=== PATIENT | female | born 2000 | race Caucasian/White ===

== ENCOUNTER 2022-09-05 09:42 | Inpatient (IN) | payer BC ==
[~2022-09-05] VITALS: Ht 172.7 cm; Wt 54.4 kg
--- NOTE | 2022-09-05 09:50 | NUR ---
Patient to ER bed 08 to gown for evaluation. Side rails up.
[2022-09-05 09:55] VITALS: BP_SYST 142; PULSE 85; RESP 18; TEMP 98.3; O2SAT 98
--- NOTE | 2022-09-05 09:59 | NUR ---
Phlebotomy at bedside obtaining samples for testing.
[2022-09-05 10:25] LABS: BASOPHILS # (AUTO) 0.1 K/uL (0.0-0.2); BASOPHILS % (AUTO) 0.4 % (0.0-2.0); EOSINOPHILS % (AUTO) 0.1 % (0.0-4.0); HEMATOCRIT 43.1 % (36-48); HEMOGLOBIN 14.4 g/dL (12.0-16.0); LYMPHOCYTES # (AUTO) 0.5 K/uL (1.0-5.5); LYMPHOCYTES % (AUTO) 2.8 % (20.5-51.5); MEAN CORPUSCULAR HEMOGLOBIN 30 pg (27-31); MEAN CORPUSCULAR HGB CONC 34 % (32-36); MEAN CORPUSCULAR VOLUME 91 fL (79.0-98.0); MONOCYTES # (AUTO) 0.8 K/uL (0.0-1.0); MONOCYTES % (AUTO) 4.3 % (1.7-9.3); NEUTROPHILS % (AUTO) 92.4 % (40.0-70.0); PLATELET COUNT (AUTO) 311 K/uL (130-430); RED BLOOD CELL COUNT(AUTO) 4.75 MIL/uL (4.2-6.2); RED CELL DISTRIBUTION WIDTH 12.3 % (9.0-15.0); WHITE BLOOD COUNT (AUTO) 18.4 K/uL (4.8-10.8)
[2022-09-05 10:30] LABS: ANION GAP 10 (5-15); CALCIUM 9.5 mg/dL (8.4-11.0); CHLORIDE 102 mmol/L (98-107); CREATININE 0.74 mg/dL (0.55-1.30); GFR AFRICAN AMERICAN 126 mL/min (>90); GLUCOSE 117 mg/dL (74-106); UREA NITROGEN, BLOOD 6 mg/dL (8-21)
[2022-09-05] MEDS ORDERED: HALOPERIDOL LACTATE 5 MG/ML VIAL IM ONE (10:30)
[2022-09-05] MEDS ORDERED: KETOROLAC TROMETHAMINE 60 MG/2 ML VIAL IM ONE (10:30)
--- NOTE | 2022-09-05 10:31 | NUR ---
Urine sample obtained. HCG negative. Sample taken to lab for testing.
[2022-09-05 10:35] LABS: ALANINE AMINOTRANSFERASE 25 U/L (12-78); ALBUMIN 5.3 g/dL (3.4-4.8); AMYLASE 27 U/L (0-100); ASPARTATE AMINOTRANSFERASE 19 U/L (10-37); LIPASE 40 U/L (73-393); TOTAL BILIRUBIN 1.2 mg/dL (0.0-1.0)
--- NOTE | 2022-09-05 11:03 | NUR ---
Patient given medication according to MD orders.
--- NOTE | 2022-09-05 11:05 | NUR ---
Patient to radiology
[2022-09-05 11:20] LABS: BILIRUBIN,URINE 1+ (NEGATIVE); CLARITY/URINE CLEAR (CLEAR); COLOR,URINE YELLOW (YELLOW); GLUCOSE,URINE NEGATIVE (NEGATIVE); KETONES,URINE TRACE (NEGATIVE); LEUKOCYTE ESTERASE ,URINE NEGATIVE (NEGATIVE); NITRITE, URINE NEGATIVE (NEGATIVE); PROTEIN URINE 1+ (NEGATIVE); UROBILINOGEN,URINE 0.2 (0.2-1.0)
[2022-09-05 11:21] LABS: BLOOD, URINE TRACE (NEGATIVE)
[2022-09-05 11:28] LABS: ACETONE, SERUM NEGATIVE (NEGATIVE)
[2022-09-05 11:49] LABS: BACTERIA,URINE RARE /HPF (None Seen)
[2022-09-05 12:07] LABS: CANNABINOID, URINE POSITIVE (NEG <=50)
[2022-09-05 12:08] LABS: BARBITURATE, URINE NEGATIVE (NEG <=200); BENZODIAZEPINE, URINE NEGATIVE (NEG <=150); COCAINE, URINE NEGATIVE (NEG <=150); METHAMPHETAMINES SCREEN,URINE NEGATIVE (NEG <=500); OPIATE, URINE NEGATIVE (NEG <=100); PHENCYCLIDINE SCREEN,URINE NEGATIVE (NEG <=25); UR TRICYCLIC ANTIDEPRESSANTS POSITIVE (NEG <=300); URINE AMPHETAMINE NEGATIVE (NEG <=500); URINE METHADONE NEGATIVE (NEG <=200); URINE OXYCODONE SCREEN NEGATIVE (NEG <=100); URINE PROPOXYPHENE SCREEN NEGATIVE (NEG <=300)
[2022-09-05] MEDS ORDERED: MORPHINE 4 MG INJ. 4 MG/ML VIAL IVP ONE ×2 (12:30→16:30)
[2022-09-05] MEDS ORDERED: NACL 0.9% 1,000 ML IV ONE (12:30)
[2022-09-05] MEDS ORDERED: PIPERACILLIN/TAZO 3.375 GM in NS 50 ML IV ONE (12:30)
[2022-09-05] MEDS ORDERED: DIFL5DRO EACH EYE (13:20)
[2022-09-05] MEDS ORDERED: QUET400T13 PO (13:20)
--- NOTE | 2022-09-05 13:20 | NUR ---
Admit bed requested Patient will be admitted to care of . Admitted to [facility] unit. Diagnosis APPENDICITIS Inpatient (Yes or No) YES Observation (Yes or No) NO Orientation concerns or request close to nursing station (Yes or No) NO Covid Status NA On vent or bipap NO Isolation requirements NO Needs a sitter NO From Home (Yes or if No enter name of facility) HOME Requires Dialysis (Yes or No) NO Med Rec Completed (Yes of No) YES
[2022-09-05] MEDS ORDERED: PIPERACILLIN/TAZOBACTAM 3.375 GM/VIAL (ZOSYN) IV ONE (13:31)
[2022-09-05] MEDS ORDERED: ARGATROBAN 250 MG in NS 247.5 ML IV SCH (14:00)
--- NOTE | 2022-09-05 14:52 | NUR ---
PT RESTING IN BED WITH EYES CLOSED AND FAMILY AT BEDSIDE. NO S/S OF DISTRESS; NO C/O PAIN; STABLE VITALS. PT PENDING DR. KAY SURGERY CONSULT.
[2022-09-05] MEDS ORDERED: NALOXONE HCL 0.4 MG/ML AMP (NARCAN) IVP PRN ×2 (16:30→17:00)
[2022-09-05] MEDS ORDERED: HYDROmorphone 1 MG/ML INJ. CARTRIDGE IVP PRN (17:00)
[2022-09-05] MEDS ORDERED: ONDANSETRON HCL 4 MG/2 ML VIAL IVP PRN (17:00)
[2022-09-05] MEDS ORDERED: METOCLOPRAMIDE HCL 10 MG/2 ML VIAL IVP PRN (17:00)
[2022-09-05] MEDS ORDERED: fentaNYL CITRATE/PF 100 MCG/2 ML AMP IVP PRN ×2 (17:00)
[2022-09-05] MEDS ORDERED: PROPOFOL 200MG/ 20ML VIAL (DIPRIVAN) IV ONE (17:35)
[2022-09-05] MEDS ORDERED: fentaNYL CITRATE/PF 100 MCG/2 ML AMP ONE (17:35)
[2022-09-05] MEDS ORDERED: NS 1000 ML IV.SOLN IV ONE (17:35)
[2022-09-05] MEDS ORDERED: ONDANSETRON HCL 4 MG/2 ML VIAL ONE (17:35)
[2022-09-05] MEDS ORDERED: SEVOFLURANE 15 MIN GAS INH ONE (17:35)
[2022-09-05] MEDS ORDERED: ROCURONIUM BROMIDE 10 MG/ML (ZEMURON) ONE (17:35)
[2022-09-05] MEDS ORDERED: NS IRRIG SOLN 1000 ML IR ONE (17:35)
[2022-09-05] MEDS ORDERED: BUPIVACAINE /PF 0.25% 30 ML VIAL INJ ONE (17:35)
[2022-09-05] MEDS ORDERED: MIDAZOLAM HCL 2 MG/2 ML VIAL (VERSED) ONE (17:35)
[2022-09-05] MEDS ORDERED: ACETAMINOPHEN I.V. 1000 MG 100 ML IV ONE ×2 (18:57→19:45)
[2022-09-05 20:10] VITALS: BP_SYST 125; PULSE 89; RESP 16; TEMP 98.1; O2SAT 96
[2022-09-05] MEDS: MORPHINE 4 MG INJ. 4 MG/ML VIAL IVP PRN (20:41)
[2022-09-05] MEDS: D5/0.45 NS 1,000 ML IV SCH (21:02)
[2022-09-05 21:03] VITALS: BP_SYST 125; PULSE 89; RESP 16; TEMP 98.1
[2022-09-05] MEDS: QUEtiapine FUMARATE 100 MG TABLET PO SCH (22:14)
[2022-09-06] VITALS: BP_SYST 117; PULSE 118; RESP 17; TEMP 98.8; O2SAT 97
[2022-09-06] MEDS: PIPERACILLIN/TAZO 3.375/DEX-IS 50 ML IV SCH ×5 (00:21→23:07)
[2022-09-06 01:56] VITALS: O2SAT 97
[2022-09-06] MEDS: MORPHINE 2 MG/ML INJ. SYRINGE IVP PRN (03:41)
[2022-09-06 05:48] LABS: BASOPHILS % (AUTO) 0.1 % (0.0-2.0); HEMATOCRIT 39.9 % (36-48); HEMOGLOBIN 13.4 g/dL (12.0-16.0); LYMPHOCYTES # (AUTO) 0.3 K/uL (1.0-5.5); LYMPHOCYTES % (AUTO) 3.4 % (20.5-51.5); MEAN CORPUSCULAR HEMOGLOBIN 31 pg (27-31); MEAN CORPUSCULAR HGB CONC 34 % (32-36); MEAN CORPUSCULAR VOLUME 91 fL (79.0-98.0); MONOCYTES # (AUTO) 0.3 K/uL (0.0-1.0); MONOCYTES % (AUTO) 3.5 % (1.7-9.3); PLATELET COUNT (AUTO) 255 K/uL (130-430); RED BLOOD CELL COUNT(AUTO) 4.39 MIL/uL (4.2-6.2); RED CELL DISTRIBUTION WIDTH 12.1 % (9.0-15.0); WHITE BLOOD COUNT (AUTO) 9.7 K/uL (4.8-10.8)
[2022-09-06 06:10] LABS: ALBUMIN 3.6 g/dL (3.4-4.8); CALCIUM 8.2 mg/dL (8.4-11.0); CREATININE 0.71 mg/dL (0.55-1.30); TOTAL BILIRUBIN 2.3 mg/dL (0.0-1.0)
[2022-09-06] MEDS: D5/0.45 NS 1,000 ML IV SCH ×2 (06:25→17:13)
--- NOTE | 2022-09-06 07:30 | NUR ---
Initial note: report received from Kathrin. patient is awake alert x4. Call light in reach. bed in the lowest position and side rails x2 up. Complained 7/10 pain on Abdominal. Will continue patient care.
[2022-09-06 08:00] VITALS: BP_SYST 111; PULSE 120; RESP 18; TEMP 97.7; O2SAT 97
[2022-09-06] MEDS: MORPHINE 4 MG INJ. 4 MG/ML VIAL IVP PRN ×3 (08:10→17:01)
[2022-09-06 12:00] VITALS: BP_SYST 105; PULSE 113; RESP 18; TEMP 97.6; O2SAT 98
--- NOTE | 2022-09-06 12:57 | NUR ---
Note: patient is resting on bed. Family is at the bedside. No pain or discomfort at this time.
--- NOTE | 2022-09-06 13:21 | NUR ---
Dietitian Recommendations * Consider advance to GI Soft diet w/ Ensure TID, Dilip BID if/when medically appropriate LP, MS, RD Please refer to Nutrition Assessment for details. Addendum: 09/06/22 at [address] Amended: Links added.
[2022-09-06 16:00] VITALS: BP_SYST 112; PULSE 115; RESP 18; TEMP 97.8; TEMP 99.4; O2SAT 97
--- NOTE | 2022-09-06 16:00 | NUR ---
Note: Patient is resting in bed. Family is at the bedside. Complained 7/10 abdominal pain and will provide pain medication and continue to monitor.
[2022-09-06] MEDS ORDERED: ACETAMINOPHEN 325 MG TABLET PO PRN (18:30)
[2022-09-06] MEDS ORDERED: NALOXONE HCL 0.4 MG/ML AMP (NARCAN) IVP PRN ×2 (18:30)
--- NOTE | 2022-09-06 19:32 | NUR ---
Closing note: Reported to Ramandeep. Patient is resting in bed. Family is at the bedside. No complain of pain or discomfort at this time. Endorse to continue patient care.
[2022-09-06] MEDS ORDERED: POTASSIUM CHLORIDE 20 MEQ TAB.PRT.SR PO ONE (19:45)
[2022-09-06] MEDS: QUEtiapine FUMARATE 100 MG TABLET PO SCH (20:32)
[2022-09-06 20:35] VITALS: BP_SYST 132; PULSE 129; RESP 20; TEMP 100.8; O2SAT 98
--- NOTE | 2022-09-06 20:35 | NUR ---
PM ASSESSMENT; - Patient is awake, alert, oriented X4. Pt denies any chest pain,pain,sob,or any acute distress. Surgical abdominal site with INA Maciel. Pt stated that she passed flatus. Encouraged pt to walk more, she verbalized that she did already with her mom around hallway before manager shift begins. Discussed poc,pain mgmt, safety measures with pt, she verbalized understanding. Patient oriented to hospital room, call light, toileting, pain management and safety-teach back done. Patient informed that I (Ramandeep) will be her nurse and that her room number is 122-A. Fall precaution in place, side rails x2 and call light within reach.Cont to monitor pt.
[2022-09-06] MEDS: HYDROcodone/ACETAMIN 10-325 MG TAB PO PRN (20:40)
--- NOTE | 2022-09-06 20:40 | NUR ---
NOTES; PAIN MGMT; -Pt is c/o abd pain, gave Morrison po upon pt's request. Fall precaution in place. Call light w/in reach. Cont to monitor pt.
[2022-09-07 00:16] VITALS: BP_SYST 126; PULSE 96; RESP 16; TEMP 98.8; O2SAT 98
--- NOTE | 2022-09-07 00:16 | NUR ---
ROUNDS; -Pt is asleep. NO s/s any pain,sob,or any acute distress noted. IVF infusing well. VS stable. All safety measures in place. Call light w/in reach. Cont to monitor pt.
--- NOTE | 2022-09-07 02:08 | NUR ---
ROUNDS; -Pt is asleep. NO s/s any pain,sob,or any acute distress noted. All safety measures in place. Call light w/in reach. Cont to monitor pt.
--- NOTE | 2022-09-07 04:22 | NUR ---
ROUNDS; -Pt is still asleep. NO s/s any pain,sob,or any acute distress noted. All safety measures in place. Call light w/in reach. Cont to monitor pt.
[2022-09-07] MEDS: PIPERACILLIN/TAZO 3.375/DEX-IS 50 ML IV SCH ×3 (05:05→17:42)
[2022-09-07 05:06] VITALS: PULSE 94; RESP 20; TEMP 99
[2022-09-07] MEDS: ACETAMINOPHEN 325 MG TABLET PO PRN ×3 (05:06→19:52)
[2022-09-07] MEDS: D5/0.45 NS 1,000 ML IV SCH ×2 (05:08→13:25)
--- NOTE | 2022-09-07 05:09 | NUR ---
NOTES;PAIN MGMT; -Pt is c/o abd pain 3/10 aching after assisting to bathroom and returned to bed safely. All safety measures in place. Call light w/in reach. Cont to monitor pt.
[2022-09-07 05:39] LABS: BASOPHILS % (AUTO) 0.1 % (0.0-2.0); HEMATOCRIT 34.2 % (36-48); HEMOGLOBIN 11.8 g/dL (12.0-16.0); LYMPHOCYTES # (AUTO) 0.4 K/uL (1.0-5.5); MEAN CORPUSCULAR HEMOGLOBIN 31 pg (27-31); MEAN CORPUSCULAR HGB CONC 35 % (32-36); MEAN CORPUSCULAR VOLUME 90 fL (79.0-98.0); MONOCYTES # (AUTO) 0.5 K/uL (0.0-1.0); MONOCYTES % (AUTO) 2.6 % (1.7-9.3); NEUTROPHILS # (AUTO) 17.1 K/uL (1.8-7.7); NEUTROPHILS % (AUTO) 95.3 % (40.0-70.0); PLATELET COUNT (AUTO) 229 K/uL (130-430); RED BLOOD CELL COUNT(AUTO) 3.79 MIL/uL (4.2-6.2); WHITE BLOOD COUNT (AUTO) 17.9 K/uL (4.8-10.8)
[2022-09-07 05:55] LABS: CALCIUM 7.9 mg/dL (8.4-11.0); CREATININE 0.71 mg/dL (0.55-1.30); TOTAL BILIRUBIN 1.3 mg/dL (0.0-1.0)
--- NOTE | 2022-09-07 06:42 | NUR ---
CLOSING NOTES; PT AMBULATED FROM HER ROOM TO HALLWAY APPROX 30 FT, PT TOLERATED WELL. -Pt awakes, denies any chest pain,pain,sob,or any acute distress. Just ambulated from her room near hallway of room 129 and returned to bed safely. Call light w/in reach. IV site patent no s/s any infiltration noted. IVF infusing well. Will endorse to next nurse to continuity of care.
--- NOTE | 2022-09-07 07:30 | NUR ---
Initial note: Report received from Ramandeep. Patient is resting in bed. No pain or discomfort at this time. Bed in the lowest position and side rails x2 up. Call light in reach. Will continue patient care.
[2022-09-07 08:00] VITALS: BP_SYST 97; PULSE 120; RESP 18; TEMP 98.7; O2SAT 96
[2022-09-07 11:22] VITALS: BP_SYST 125; PULSE 130; RESP 19; TEMP 98.6; O2SAT 98
--- NOTE | 2022-09-07 12:11 | NUR ---
Note: paged Dr. Franck Waters for heart rate at 120 and 130 and potassium is 3.3 today. Waiting for call back.
--- NOTE | 2022-09-07 12:39 | NUR ---
Note: patient tolerated clear liquid diet well and ungraded the diet to soft diet as doctor ordered. No pain or discomfort at this time. Family is at the bedside. Will continue to monitor.
--- NOTE | 2022-09-07 12:43 | NUR ---
Note: patient stated she passed the gas earlier today.
--- NOTE | 2022-09-07 12:44 | NUR ---
Note: paged Dr. Franck Waters again for the high heart rate and potassium 3.3. Waiting for call back. Patient has no pain or discomfort at this time.
--- NOTE | 2022-09-07 13:05 | NUR ---
Note: Dr. Franck Waters called back and reported heart rate 130 and potassium 3.3 and WBC 17.9. New order received for KDUR 40mEq x1 and patient is already on Zosyn and Dr. Waters stated to continue monitor the heart rate and lab result. No new order for high heart rate and WBC for now. Will continue to monitor.
[2022-09-07] MEDS ORDERED: POTASSIUM CHLORIDE 20 MEQ TAB.PRT.SR PO ONE (13:15)
[2022-09-07 16:00] VITALS: BP_SYST 117; PULSE 122; RESP 18; TEMP 98.6; O2SAT 97
--- NOTE | 2022-09-07 16:00 | NUR ---
Note: patient is resting in bed. Family is at the bedside. No pain or discomfort at this time. Will continue to monitor.
--- NOTE | 2022-09-07 19:58 | NUR ---
Closing note: reported to Tatum. Provided Tylenol to patient for mild abdominal pain. Patient is awake alert x4. Family is at the bedside. Endorse to continue patient care.
[2022-09-07 20:00] VITALS: BP_SYST 119; PULSE 119; RESP 18; TEMP 98; O2SAT 98
--- NOTE | 2022-09-07 20:00 | NUR ---
ASSESSMENT COMPLETED PLAN OF CARE REVIEWED PT ENDORSES SHE IS IN PAIN AND TYLENOL NOT EFFECTIVE AT THIS TIME PT MADE AWARE PAIN WILL BE REASSESSED IN 1 HOUR AND IF NO RELEIF NORCO WILL BE GIVEN PT ENDORSES PAIN IS TOLERABLE AT THIS TIME MOTHER AT BEDSIDE IV PATENT ASSISTED TO BRP VOIDED NO DISTRESS NOTED WILL CONTINUE TO MONITOR AND ASSESS HR [address] PT DENIES CHEST PAIN SYNCOPE OR DIZZINESS AT THIS TIME
[2022-09-07] MEDS: QUEtiapine FUMARATE 100 MG TABLET PO SCH (21:14)
[2022-09-07] MEDS: HYDROcodone/ACETAMIN 10-325 MG TAB PO PRN (21:15)
[2022-09-08] VITALS: BP_SYST 121; PULSE 98; RESP 18; TEMP 98.2; O2SAT 97
[2022-09-08] MEDS: D5/0.45 NS 1,000 ML IV SCH ×2 (00:08→10:17)
[2022-09-08] MEDS: PIPERACILLIN/TAZO 3.375/DEX-IS 50 ML IV SCH ×4 (00:08→18:48)
--- NOTE | 2022-09-08 00:30 | NUR ---
NO CHANGES AT THIS TIME VSS NO DISTRESS TURNS AND REPOSITIONS SELF WILL CONTINUE TO MONITOR AND ASSESS
[2022-09-08 04:00] VITALS: BP_SYST 104; PULSE 125; RESP 18; TEMP 99.4; O2SAT 96
[2022-09-08] MEDS: HYDROcodone/ACETAMIN 10-325 MG TAB PO PRN ×4 (04:48→18:56)
--- NOTE | 2022-09-08 06:18 | NUR ---
VALERIA LEGS DRESSING WRAPPED AND REINFORCED WITH KERLIX NO SIGNIFICANT CHANGES NOTED THROUGHOUT NOC ALL NEEDS ANTICIPATED AND MET Addendum: 09/08/22 at 0623 by Garrett Resendiz RN RN WRONG NOTE WRONG CHART
--- NOTE | 2022-09-08 06:23 | NUR ---
NO ACUTE DITRESS NOTED BAND AID SITES DRY AND INTACT PAIN MEDICATION EFFECTIVE ALL NEEDS ANTICIPATED AND MET
[2022-09-08 06:24] LABS: EOSINOPHILS # (AUTO) 0.1 K/uL (0.0-0.4); EOSINOPHILS % (AUTO) 0.4 % (0.0-4.0); HEMATOCRIT 32.8 % (36-48); HEMOGLOBIN 11.2 g/dL (12.0-16.0); LYMPHOCYTES # (AUTO) 0.5 K/uL (1.0-5.5); MEAN CORPUSCULAR HEMOGLOBIN 31 pg (27-31); MEAN CORPUSCULAR HGB CONC 34 % (32-36); MEAN CORPUSCULAR VOLUME 90 fL (79.0-98.0); MONOCYTES # (AUTO) 0.6 K/uL (0.0-1.0); MONOCYTES % (AUTO) 3.4 % (1.7-9.3); NEUTROPHILS # (AUTO) 16.5 K/uL (1.8-7.7); NEUTROPHILS % (AUTO) 93.2 % (40.0-70.0); PLATELET COUNT (AUTO) 249 K/uL (130-430); RED BLOOD CELL COUNT(AUTO) 3.65 MIL/uL (4.2-6.2); RED CELL DISTRIBUTION WIDTH 12.4 % (9.0-15.0); WHITE BLOOD COUNT (AUTO) 17.7 K/uL (4.8-10.8)
[2022-09-08 06:40] LABS: CALCIUM 8.2 mg/dL (8.4-11.0); CREATININE 0.61 mg/dL (0.55-1.30)
[2022-09-08 08:00] VITALS: BP_SYST 105; PULSE 115; RESP 18; TEMP 97.8; O2SAT 97
[2022-09-08 10:13] LABS: ERYTHROCYTE SEDIMENTATION RATE 78 MM/HR (0-20)
[2022-09-08] MEDS ORDERED: KCL 40 mEq in 100 mL (PREMIX) 100 ML IV ONE (11:15)
[2022-09-08] MEDS ORDERED: DIATR MEGLU/DIATRIZ SOD 30 ML SOLUTION PO ONE (11:34)
[2022-09-08] MEDS: POTASSIUM CHLORIDE 20 mEq in 100 mL (PREMIX) 100 ML x 2 doses IV SCH ×2 (11:38→15:34)
[2022-09-08 11:49] VITALS: BP_SYST 113; PULSE 110; RESP 16; TEMP 99.3; O2SAT 97
--- NOTE | 2022-09-08 12:26 | NUR ---
CONSULTATION PAGED/CALLED Reason for Consultation: leukocytosis Person Who was Notified: Dr. Chiu on unit and aware Consulting Physician: Dr. Chiu Unit Leader Specialty: ID Ordering Physician: Dr. Waters
[2022-09-08] MEDS: D5NS 1,000 ML IV SCH ×2 (13:15→18:57)
--- NOTE | 2022-09-08 16:45 | NUR ---
PATIENT SLEEPING AT THIS TIME. FAMILY REQUESTED FOR EKG TO BE DONE AT A LATER TIME. WILL TRY AGAIN LATER PER FAMILY REQUEST.
[2022-09-08 18:14] VITALS: BP_SYST 110; PULSE 105; RESP 17; TEMP 99; O2SAT 95
--- NOTE | 2022-09-08 19:17 | NUR ---
PT A&O. C/O PAIN IN ABDOMEN - PRN NORCO GIVEN NEEDED. PT CLAMMY UPON WAKING UP - NO TEMP ABOVE 99. NO C/O CHILLS OR SOB. CT OF ABDOMEN/PELVIS COMPLETED, CARDIO CLEARED. 40 OF K IV REPLACEMENT GIVEN. IVF CHANGED FROM D5 1/2NS TO D5NS FOR DROP IN SODIUM. DIET ADVANCED REQUESTED BY PATIENT BUT VERY POOR PO INTAKE - LESS THAN 10%. ABLE TO AMBULATE TO BATHROOM. PASSING GAS BUT NO BM AND VOIDING OK. STOMACH DISTENDED. FALL PRECAUTIONS IN PLACE AND CALL FRAGA IN REACH. ACTIVE PARENTS AT BEDSIDE.
[2022-09-08 20:00] VITALS: BP_SYST 115; PULSE 110; RESP 20; TEMP 96.9; O2SAT 96
--- NOTE | 2022-09-08 20:00 | NUR ---
OPENING NOTES PATIENT IS SITTING IN BED WITH FAMILY AT BEDSIDE. AXO 4 WITH MILD DISCOMFORT. PATIENT VOMITED 2X. RN ADMINISTERED ZOFRAN FOR N/V. BREATHING IS EQUAL AND UNLABORED ON RA. INCISIONS ARE INTACT. SAFETY CHECKS ARE DONE, CALL LIGHT WITH IN REACH, WILL CONTINUE TO MONITOR.
[2022-09-08] MEDS: QUEtiapine FUMARATE 100 MG TABLET PO SCH (21:25)
[2022-09-08] MEDS: ONDANSETRON HCL 4 MG/2 ML VIAL IVP PRN (22:01)
[2022-09-09] VITALS (7 sets, daily range): BP systolic 116–130; PULSE 94–111; RESP 16–18; TEMP 98–99.2; O2SAT 95–97
[2022-09-09] MEDS: PIPERACILLIN/TAZO 3.375/DEX-IS 50 ML IV SCH ×5 (00:54→23:22)
[2022-09-09] MEDS: MORPHINE 2 MG/ML INJ. SYRINGE IVP PRN ×4 (03:57→20:11)
--- NOTE | 2022-09-09 03:57 | NUR ---
PAIN MEDS PATIENT IS HAVING 8/ 10 ABDOMINAL PAIN. HAVE RN ADMINISTERED MORPHINE IV FOR PAIN. WILL CONTINUE TO MONITOR,
[2022-09-09] MEDS: D5NS 1,000 ML IV SCH ×2 (06:07→20:15)
[2022-09-09] MEDS: LORazepam 2 MG/ML VIAL IVP PRN ×2 (06:14→17:12)
[2022-09-09 06:31] LABS: BASOPHILS % (AUTO) 0.3 % (0.0-2.0); EOSINOPHILS # (AUTO) 0.1 K/uL (0.0-0.4); EOSINOPHILS % (AUTO) 0.7 % (0.0-4.0); HEMATOCRIT 34.2 % (36-48); HEMOGLOBIN 11.3 g/dL (12.0-16.0); LYMPHOCYTES # (AUTO) 0.9 K/uL (1.0-5.5); LYMPHOCYTES % (AUTO) 7.7 % (20.5-51.5); MEAN CORPUSCULAR HEMOGLOBIN 30 pg (27-31); MEAN CORPUSCULAR HGB CONC 33 % (32-36); MEAN CORPUSCULAR VOLUME 91 fL (79.0-98.0); MONOCYTES # (AUTO) 0.8 K/uL (0.0-1.0); MONOCYTES % (AUTO) 6.2 % (1.7-9.3); NEUTROPHILS # (AUTO) 10.5 K/uL (1.8-7.7); NEUTROPHILS % (AUTO) 85.1 % (40.0-70.0); PLATELET COUNT (AUTO) 344 K/uL (130-430); RED BLOOD CELL COUNT(AUTO) 3.75 MIL/uL (4.2-6.2); RED CELL DISTRIBUTION WIDTH 12.5 % (9.0-15.0); WHITE BLOOD COUNT (AUTO) 12.4 K/uL (4.8-10.8)
--- NOTE | 2022-09-09 06:37 | NUR ---
CLOSING NOTES PATIENT IS LYING IN BED AXO 4 WITH NO S/S OF DISTRESS OR DISCOMFORT. PATIENT STATED SHE HAS NEED BEEN ABLE TO SLEEP WELL AND RN ADMINISTERED 1 MG OF ATIVAN. PATIENT STATES SHE DOES NOT HAVE PAIN OR NAUSEA AT THE MOMENT. IVF ARE RUNNING. BREATHING IS EQUAL AND UNLABORED ON RA. ALL NEEDS WERE MET AT THIS TIME. SAFETY CHECKS DONE AND CALL LIGHT WITH IN REACH,
[2022-09-09 07:01] LABS: CALCIUM 8.1 mg/dL (8.4-11.0); CREATININE 0.59 mg/dL (0.55-1.30)
[2022-09-09 07:44] LABS: ERYTHROCYTE SEDIMENTATION RATE 91 MM/HR (0-20)
[2022-09-09] MEDS: HYDROcodone/ACETAMIN 10-325 MG TAB PO PRN (11:02)
[2022-09-09] MEDS: ONDANSETRON HCL 4 MG/2 ML VIAL IVP PRN ×2 (11:02→17:12)
--- NOTE | 2022-09-09 11:48 | NUR ---
Nutrition F/U RD reviewed pts current EMR including diet hx, physician notes, nursing notes, pertinent labs/meds/procedures, care trends and care activity. Admitting Diagnosis Appendicitis 09/05: Pt had a lap appy Per Chiu Consult 09/08: CT abdomen pelvis [09/08/2022]: 1. Dilated loops of small bowel measuring up to 3.6 cm in diameter. Enteric contrast is within the proximal and mid small bowel but does not extend to the distal small bowel or colon. Findings are suspicious for underlying ileus or evolving small bowel obstruction. Clinical correlation advised. 2. Calcification at the right lower quadrant adjacent to the cecum measuring up to 7 mm could represent a residual stone within an appendical stump remnant or a dropped appendicolith. CT with contrast would aid in delineation of these 2 entities. There is adjacent suture material and edema present. Subjective Information RD rounded to pt room and pt was crying from stomach pain. RD asked her and her mother if she had told RN about this pain and they just had. RN came in to administer pain meds during RD visit. RD asked if pt was tolerating diet and she said she was somewhat. RD encouraged pt to try and walk and move around to help encourage gas pain to dissipate; pt said she is trying but the pain is making it hard. Per EMR review: abd distended w/ active bowel sounds; pt on room air; LABS: WBC 12.4 H (improving), K+ 3.2 L, BUN 4 L. Pt is likely not meeting nutritional needs yet. Current Diet Order/Nutrition Support Clear liquid x 0 days % PO intake Poor avg of 39% x 7 meal records Last BM *none documented Estimated Energy Expenditure (kcals/day) 9426-2052 (30-35 kcal/kg IBW for wt gain promotion, Sx healing) Estimated Protein Required (g/day) 64-77 (1-1.2 gm/kg IBW for wt gain promotion, Sx healing) Estimated Fluid Required (l/day) 1.9-2.2 (1 ml/kcal/day for adult maintenance) Problem/Etiology/Signs/Symptoms Increased nutritional needs R/T metabolic demands AEB estimated nutritional requirements for wt gain and Sx healing. *ongoing Expected Outcomes/Goals - Monitor appetite, PO intakes, and advancement of diet w/ goal of pt meeting at least 50% of estimated nutritional needs, labs trending WNL, normal GI function, and skin integrity/wt maintenance Dietitian Recommendations * Consider advance to GI Soft diet w/ Ensure TID, Dilip BID if/when medically appropriate Follow up *Moderate risk: f/u in 3-5 days MUNA, MPH, RD
--- NOTE | 2022-09-09 11:49 | NUR ---
Dietitian Recommendations * Consider advance to GI Soft diet w/ Ensure TID, Dilip BID if/when medically appropriate GS, MPH, RD Please refer to Nutrition F/U for further details. Thanks!
[2022-09-09] MEDS ORDERED: KCL 40 mEq in 100 mL (PREMIX) 100 ML IV ONE (13:45)
[2022-09-09] MEDS: POTASSIUM CHLORIDE 20 mEq in 100 mL (PREMIX) 100 ML x 2 doses IV SCH ×2 (14:26→17:17)
--- NOTE | 2022-09-09 18:27 | NUR ---
pt a&o, c/o pain in abdomen - no c/o n/v. pt able to ambulate w/ pain. ivf infusing as ordered. able to tolerate small amount of clear liquid diet. able to pass gas, abdomen distended. prn zofran, morphine, norco and ativan given as needed. pt family @ bedside. iv k replacement infusing as ordered. vss. fall precautions in place. will continue to monitor.
[2022-09-09] MEDS: QUEtiapine FUMARATE 100 MG TABLET PO SCH (18:42)
--- NOTE | 2022-09-09 18:47 | NUR ---
PT C/O INCREASING ANXIETY - GIVEN HS SEROQUEL DOSE AN HOUR EARLY PER PT REQUEST. PRN ATIVAN ALREADY GIVEN PREVIOUSLY AND UNSUCCESSFUL AT ALLEVIATING SYMPTOM.
[2022-09-10] VITALS: BP_SYST 125; PULSE 95; RESP 18; TEMP 98.2; O2SAT 96
[2022-09-10] MEDS: MORPHINE 2 MG/ML INJ. SYRINGE IVP PRN ×2 (01:11→08:46)
[2022-09-10] MEDS: HYDROcodone/ACETAMIN 10-325 MG TAB PO PRN ×2 (03:58→11:26)
[2022-09-10 04:40] LABS: ERYTHROCYTE SEDIMENTATION RATE 93 MM/HR (0-20)
[2022-09-10 04:45] LABS: BASOPHILS % (AUTO) 0.1 % (0.0-2.0); EOSINOPHILS # (AUTO) 0.1 K/uL (0.0-0.4); EOSINOPHILS % (AUTO) 0.9 % (0.0-4.0); HEMATOCRIT 32.2 % (36-48); HEMOGLOBIN 11.1 g/dL (12.0-16.0); LYMPHOCYTES # (AUTO) 0.9 K/uL (1.0-5.5); MEAN CORPUSCULAR HEMOGLOBIN 31 pg (27-31); MEAN CORPUSCULAR HGB CONC 34 % (32-36); MEAN CORPUSCULAR VOLUME 90 fL (79.0-98.0); MONOCYTES % (AUTO) 10.4 % (1.7-9.3); NEUTROPHILS # (AUTO) 7.3 K/uL (1.8-7.7); NEUTROPHILS % (AUTO) 78.6 % (40.0-70.0); PLATELET COUNT (AUTO) 361 K/uL (130-430); RED BLOOD CELL COUNT(AUTO) 3.59 MIL/uL (4.2-6.2); RED CELL DISTRIBUTION WIDTH 12.6 % (9.0-15.0); WHITE BLOOD COUNT (AUTO) 9.3 K/uL (4.8-10.8)
[2022-09-10 05:12] LABS: ALBUMIN 2.5 g/dL (3.4-4.8); CALCIUM 7.7 mg/dL (8.4-11.0); CREATININE 0.56 mg/dL (0.55-1.30); TOTAL BILIRUBIN 0.8 mg/dL (0.0-1.0)
[2022-09-10] MEDS: PIPERACILLIN/TAZO 3.375/DEX-IS 50 ML IV SCH ×3 (05:33→17:17)
[2022-09-10] MEDS: D5NS 1,000 ML IV SCH ×2 (05:37→14:33)
[2022-09-10 08:00] VITALS: O2SAT 96
[2022-09-10 08:16] VITALS: BP_SYST 126; PULSE 98; RESP 18; TEMP 97.9; O2SAT 96
--- NOTE | 2022-09-10 10:00 | NUR ---
PT WALKING IN THE HALLWAY WITH HER MOTHER. PT WAS GIVEN PAIN MEDICATIONS FOR LOWER BACK PAIN EARLIER, AFTER PT AMBULATED TO THE BATHROOM. PT WAS GIVEN SMOOTHIE BY PT MOTHER AND REFUSED TO EAT THE CLEAR LIQUID DIET.
--- NOTE | 2022-09-10 10:31 | NUR ---
DR CHAVEZ HERE AND MADE AWARE OF PT C/O OF PAIN BUT IT SEEMS IT IS NOT WORKING. MOTHER OF PT DOES NOT WANT ME TO GIVE NORCO BECAUSE IT WILL CAUSE MORE BOWEL OBSTRUCTION. TOLD THAT SHE ALSO COMPLAIN OF GAS PAIN.
[2022-09-10] MEDS ORDERED: SIMETHICONE 80 MG TAB.CHEW PO ONE ×2 (11:00→16:15)
--- NOTE | 2022-09-10 11:05 | NUR ---
pt given mylicon for gas pain.
--- NOTE | 2022-09-10 11:14 | NUR ---
pt ambulated in the hallway 2x with her mother.
--- NOTE | 2022-09-10 11:30 | NUR ---
PT GIVEN NORCO FOR R. FLANK PAIN. PT CRYING, MOTHER AT BEDSIDE. PROVIDED ALSO WITH ICE PACKS.
[2022-09-10] MEDS ORDERED: POTASSIUM CHLORIDE 40 MEQ in NS 250 ML IV ONE (13:00)
[2022-09-10] MEDS ORDERED: BISACODYL 10 MG/SUPPOSITORY RC PRN (13:15)
[2022-09-10] MEDS ORDERED: SENNOSIDES/DOCUSATE SODIUM 1 TAB TABLET(SENOKOT-S) PO PRN (13:15)
[2022-09-10] MEDS: SIMETHICONE 80 MG TAB.CHEW PO SCH ×2 (15:51→21:57)
[2022-09-10 16:42] VITALS: BP_SYST 130; PULSE 90; RESP 19; TEMP 97.6; O2SAT 98
[2022-09-10] MEDS: HYDROcodone/ACETAMIN 5-325 MG TAB (NORCO/ VICODIN) PO PRN ×2 (17:10→21:55)
[2022-09-10] MEDS: ONDANSETRON HCL 4 MG/2 ML VIAL IVP PRN (18:59)
--- NOTE | 2022-09-10 19:04 | NUR ---
PT GIVEN ZOFRAN FOR NAUSEA.
[2022-09-10 20:00] VITALS: BP_SYST 122; PULSE 91; RESP 19; TEMP 97.3; O2SAT 96; O2SAT 97
[2022-09-10] MEDS: QUEtiapine FUMARATE 100 MG TABLET PO SCH (21:54)
[2022-09-11 00:16] VITALS: BP_SYST 114; PULSE 76; RESP 20; TEMP 98.4; O2SAT 95
[2022-09-11] MEDS: PIPERACILLIN/TAZO 3.375/DEX-IS 50 ML IV SCH ×3 (01:04→12:25)
[2022-09-11] MEDS: ONDANSETRON HCL 4 MG/2 ML VIAL IVP PRN (01:05)
[2022-09-11] MEDS: D5NS 1,000 ML IV SCH ×2 (01:06→11:55)
[2022-09-11] MEDS: HYDROcodone/ACETAMIN 5-325 MG TAB (NORCO/ VICODIN) PO PRN (05:46)
[2022-09-11 07:30] VITALS: O2SAT 98
--- NOTE | 2022-09-11 07:30 | NUR ---
INITIAL NOTES PATIENT IS RESTING IN BED WITH FAMILY AT BEDSIDE. AXO 4 WITH MILD DISCOMFORT. PATIENT VOMITED 2X. BREATHING IS NORMAL AND UNLABORED ON RA. INCISIONS ARE INTACT. SAFETY CHECKS ARE DONE, CALL LIGHT WITH IN REACH, WILL CONTINUE TO MONITOR.
[2022-09-11] MEDS: SIMETHICONE 80 MG TAB.CHEW PO SCH (08:37)
[2022-09-11 08:40] VITALS: BP_SYST 120; PULSE 99; RESP 16; TEMP 98.6; O2SAT 98
[2022-09-11] MEDS ORDERED: POTASSIUM CHLORIDE 20 MEQ TAB.PRT.SR PO ONE (11:30)
--- NOTE | 2022-09-11 11:30 | NUR ---
ROUNDS PATIENT IS RESTING IN BED WITH FAMILY AT BEDSIDE. TOOK WALK IN THE HALWAY TOLERATED WELL AXO 4 WITH MILD DISCOMFORT. PATIENT VOMITED 2X. BREATHING IS NORMAL AND UNLABORED ON RA. INCISIONS ARE INTACT. SAFETY CHECKS ARE DONE, CALL LIGHT WITH IN REACH, WILL CONTINUE TO MONITOR.
[2022-09-11] MEDS ORDERED: AUG875 PO (13:49)
[2022-09-11] MEDS ORDERED: HYDR-3917 PO (13:52)
[2022-09-11] MEDS ORDERED: SIME125C81 PO (13:52)
[2022-09-11 14:31] VITALS: BP_SYST 131; PULSE 89; RESP 16; TEMP 98.1; O2SAT 98
--- NOTE | 2022-09-11 15:05 | NUR ---
D/C Patient Patient given medication reconciliation form and D/C instructions. Exit Care provided. Patient verbalized understanding. MD discussed with patient the results and treatment provided. Ambulatory with steady gait for discharge to home. Patient in stable condition, ID band removed. IV catheter removed, intact and dressing applied, no active bleeding. Rx SENT TO THE PHARMACY ELECTRONICALLY, PATIENT RECIEVED TEXT MESSAGE FROM THE PHARMACY OF MEDS BEING READY FOR HEALTH ADMINISTRATION TEACHER . Patient educated on pain management. All belongings sent with patient.
[2022-09-11] MEDS ORDERED: POTASSIUM CHLORIDE 20 MEQ TAB.PRT.SR PO SCH (21:00)
== END 2022-09-11 15:00 | disposition home or self-care (01) | DRG 336 ==
LOC: SED 09:42 → SMU 13:01
PROVIDERS: ADMIT Specialist; ATTEND Specialist
PROC: 0DNW4ZZ Release Peritoneum, Percutaneous Endoscopic Approach (ICD-10-PCS; 2022-09-05)
PROC: 0W9G4ZZ Drainage of Peritoneal Cavity, Percutaneous Endoscopic Approach (ICD-10-PCS; 2022-09-05)
PROC: 0DTJ4ZZ Resection of Appendix, Percutaneous Endoscopic Approach (ICD-10-PCS; principal; 2022-09-05 17:30)
DX: K35.32 Acute appendicitis with perforation, localized peritonitis, and gangrene, without abscess (principal); E87.1 Hypo-osmolality and hyponatremia; K56.7 Ileus, unspecified; E88.09 Other disorders of plasma-protein metabolism, not elsewhere classified; E87.6 Hypokalemia; E83.51 Hypocalcemia; R16.0 Hepatomegaly, not elsewhere classified; F17.200 Nicotine dependence, unspecified, uncomplicated; F12.90 Cannabis use, unspecified, uncomplicated; D64.9 Anemia, unspecified; K56.41 Fecal impaction; Z90.49 Acquired absence of other specified parts of digestive tract; Z97.5 Presence of (intrauterine) contraceptive device; K66.0 Peritoneal adhesions (postprocedural) (postinfection)
CPT/HCPCS: 36415; 74018; 76376; 80048; 80053; 80307; 81000; 82009; 82150; 83605; 83690; 84703; 85025; 85651-TC; 86886; 86900; 86901; 87040; 87070; 88304; 93005; 93306; 96365; 96372; 96375; 96376; 99285; C1727; J0131; J1630; J1885; J2060; J2270; J2405; J2543; J2704; J3010; J3465; J3480; J3490; J7030; J7042; J7050; Q9964

== ENCOUNTER 2023-04-19 03:47 | Inpatient (IN) | payer BC ==
[~2023-04-19] VITALS: Ht 172.7 cm; Wt 58.5 kg
[~2023-04-19 03:47] MED LIST: AUG875 PO; DIFL5DRO EACH EYE; QUET400T13 PO; SIME125C81 PO
[2023-04-19 03:48] VITALS: BP_SYST 122; PULSE 104; RESP 18; TEMP 98.4; O2SAT 99
[2023-04-19] MEDS: HALOPERIDOL LACTATE 5 MG/ML VIAL IVP ONE (04:25)
[2023-04-19] MEDS: KETOROLAC TROMETHAMINE 15 MG VIAL IVP ONE ×3 (04:26→15:07)
[2023-04-19] MEDS: NACL 0.9% 1,000 ML IV ONE ×2 (04:28→06:32)
[2023-04-19 04:32] LABS: BASOPHILS % (AUTO) 0.1 % (0.0-2.0); EOSINOPHILS % (AUTO) 0.2 % (0.0-4.0); HEMATOCRIT 41.3 % (36-48); HEMOGLOBIN 14.3 g/dL (12.0-16.0); LYMPHOCYTES # (AUTO) 1.2 K/uL (1.0-5.5); LYMPHOCYTES % (AUTO) 8.1 % (20.5-51.5); MEAN CORPUSCULAR HEMOGLOBIN 30 pg (27-31); MEAN CORPUSCULAR HGB CONC 35 % (32-36); MEAN CORPUSCULAR VOLUME 87 fL (79.0-98.0); MONOCYTES # (AUTO) 0.7 K/uL (0.0-1.0); MONOCYTES % (AUTO) 4.8 % (1.7-9.3); NEUTROPHILS # (AUTO) 12.4 K/uL (1.8-7.7); NEUTROPHILS % (AUTO) 86.8 % (40.0-70.0); PLATELET COUNT (AUTO) 346 K/uL (130-430); RED BLOOD CELL COUNT(AUTO) 4.78 MIL/uL (4.2-6.2); RED CELL DISTRIBUTION WIDTH 14.1 % (9.0-15.0); WHITE BLOOD COUNT (AUTO) 14.3 K/uL (4.8-10.8)
[2023-04-19 04:34] LABS: BILIRUBIN,URINE NEGATIVE (NEGATIVE); CLARITY/URINE SL CLOUDY (CLEAR); COLOR,URINE YELLOW (YELLOW); GLUCOSE,URINE NEGATIVE (NEGATIVE); KETONES,URINE 1+ (NEGATIVE); LEUKOCYTE ESTERASE ,URINE NEGATIVE (NEGATIVE); NITRITE, URINE NEGATIVE (NEGATIVE); PROTEIN URINE NEGATIVE (NEGATIVE); UROBILINOGEN,URINE 0.2 (0.2-1.0)
[2023-04-19 04:40] LABS: BLOOD, URINE 1+ (NEGATIVE)
[2023-04-19 05:03] LABS: BACTERIA,URINE None Seen /HPF (None Seen); WBC,URINE 0-3 /HPF (0-3)
[2023-04-19 05:10] LABS: CALCIUM 9.5 mg/dL (8.4-11.0); CREATININE 0.7 mg/dL (0.55-1.30); POTASSIUM 3.1 mmol/L (3.5-5.1)
[2023-04-19 05:15] LABS: ALBUMIN 5.1 g/dL (3.4-4.8); BILIRUBIN,DIRECT 0.2 mg/dL (0.0-0.3); TOTAL BILIRUBIN 0.8 mg/dL (0.0-1.0); TOTAL PROTEIN, SERUM 8.8 g/dL (6.4-8.3)
[2023-04-19] MEDS ORDERED: PIPERACILLIN/TAZOBACTAM 3.375 GM/VIAL (ZOSYN) IV ONE (07:36)
[2023-04-19] MEDS: PIPERACILLIN/TAZO 3.375 GM in NS 50 ML IV ONE (07:46)
[2023-04-19] MEDS: MORPHINE 2 MG/ML INJ. SYRINGE IVP PRN (11:33)
[2023-04-19] MEDS ORDERED: QUET50TA24 PO (11:33)
[2023-04-19] MEDS ORDERED: MORPHINE 2 MG/ML INJ. SYRINGE ONE (11:33)
[2023-04-19] MEDS ORDERED: PRED5TAB PO (11:33)
[2023-04-19] MEDS ORDERED: HYDR200T38 PO (11:33)
[2023-04-19] MEDS ORDERED: HYDROmorphone 2 MG/ML VIAL ONE (14:08)
[2023-04-19] MEDS ORDERED: LORazepam 1 MG TABLET PO PRN (16:45)
[2023-04-19] MEDS: D5/0.45 NS 1,000 ML IV SCH (17:20)
[2023-04-19] MEDS ORDERED: PIPERACILLIN/TAZOBACTAM 3.375 GM/ DEX-IS 50 ML PREMIX IV ONE (18:00)
[2023-04-19] MEDS ORDERED: MORPHINE 4 MG INJ. 4 MG/ML VIAL IVP PRN ×2 (19:00)
[2023-04-19] MEDS ORDERED: ONDANSETRON HCL 4 MG/2 ML VIAL IVP PRN (19:00)
[2023-04-19] MEDS ORDERED: NALOXONE HCL 0.4 MG/ML AMP (NARCAN) IVP PRN (19:00)
[2023-04-19] MEDS ORDERED: PROPOFOL 200MG/ 20ML VIAL (DIPRIVAN) IV ONE (19:38)
[2023-04-19] MEDS ORDERED: NEOSTIGMINE METHYLSULFATE 1 MG/ML, 10 ML VIAL ONE (19:38)
[2023-04-19] MEDS ORDERED: ROCURONIUM BROMIDE 10 MG/ML (ZEMURON) ONE (19:38)
[2023-04-19] MEDS ORDERED: LR 1,000 ML IV.SOLN IV ONE (19:38)
[2023-04-19] MEDS ORDERED: GLYCOPYRROLATE 0.2 MG/ML VIAL ONE (19:38)
[2023-04-19] MEDS ORDERED: SUCCINYLCHOLINE CHLORIDE 20 MG/ML(QUELICIN) ONE (19:38)
[2023-04-19] MEDS ORDERED: ePHEDrine sulfate 50 MG/ML VIAL ONE (19:38)
[2023-04-19] MEDS ORDERED: SEVOFLURANE 15 MIN GAS INH ONE (19:38)
[2023-04-19] MEDS ORDERED: *TPN PER PHARMACY XX PRN (19:45)
[2023-04-19] MEDS: HYDROmorphone 1 MG/ML INJ. CARTRIDGE IVP PRN (20:10)
[2023-04-19] MEDS ORDERED: HYDROmorphone 1 MG/ML INJ. CARTRIDGE ONE ×2 (20:10→20:55)
[2023-04-19] MEDS ORDERED: ONDANSETRON HCL 4 MG/2 ML VIAL ONE (21:26)
[2023-04-19 21:40] VITALS: BP_SYST 148; PULSE 98; RESP 22; TEMP 98.8
[2023-04-19] MEDS: PIPERACILLIN/TAZO 4.5GM/DEX-IS 100 ML IV SCH (22:00)
[2023-04-19 22:46] VITALS: BP_SYST 114; PULSE 90; O2SAT 97
[2023-04-20] VITALS (7 sets, daily range): BP systolic 101–126; PULSE 76–106; RESP 16–20; TEMP 97.4–99.1; O2SAT 95–98
[2023-04-20 05:39] LABS: INR 1.3 (0.8-1.2)
[2023-04-20 05:41] LABS: ALBUMIN 3.6 g/dL (3.4-4.8); CALCIUM 8.5 mg/dL (8.4-11.0); CREATININE 0.69 mg/dL (0.55-1.30); POTASSIUM 3.3 mmol/L (3.5-5.1); TOTAL BILIRUBIN 1.5 mg/dL (0.0-1.0); TOTAL PROTEIN, SERUM 7.3 g/dL (6.4-8.3)
[2023-04-20 07:37] LABS: HEMATOCRIT 36.7 % (36-48); HEMOGLOBIN 12.3 g/dL (12.0-16.0); LYMPHOCYTES # (AUTO) 0.3 K/uL (1.0-5.5); LYMPHOCYTES % (AUTO) 1.6 % (20.5-51.5); MEAN CORPUSCULAR HEMOGLOBIN 30 pg (27-31); MEAN CORPUSCULAR HGB CONC 34 % (32-36); MEAN CORPUSCULAR VOLUME 88 fL (79.0-98.0); MONOCYTES # (AUTO) 0.6 K/uL (0.0-1.0); MONOCYTES % (AUTO) 3.5 % (1.7-9.3); NEUTROPHILS # (AUTO) 15.4 K/uL (1.8-7.7); NEUTROPHILS % (AUTO) 94.9 % (40.0-70.0); PLATELET COUNT (AUTO) 259 K/uL (130-430); RED BLOOD CELL COUNT(AUTO) 4.18 MIL/uL (4.2-6.2); RED CELL DISTRIBUTION WIDTH 14.1 % (9.0-15.0); WHITE BLOOD COUNT (AUTO) 16.2 K/uL (4.8-10.8)
[2023-04-20 08:16] LABS: PHOSPHORUS 2.5 mg/dL (2.7-4.5)
[2023-04-20] MEDS: MORPHINE 4 MG INJ. 4 MG/ML VIAL IVP PRN (10:36)
[2023-04-20] MEDS: HYDROXYCHLOROQUINE SULFATE 200 MG TABLET PO ONE (14:21)
[2023-04-20] MEDS: QUEtiapine FUMARATE 25 MG TABLET PO SCH (15:00)
[2023-04-20] MEDS: TPN CENTRAL IV SCH (21:41)
[2023-04-20] MEDS: K PHOS IV SCH (21:41)
[2023-04-20] MEDS: [UNRECOGNIZED DRUG - OTHER] IV SCH (21:41)
[2023-04-20] MEDS: POTASSIUM CHLORIDE IV SCH (21:41)
[2023-04-20] MEDS: SODIUM CHLORIDE IV SCH (21:41)
[2023-04-20] MEDS: SIMETHICONE 80 MG TAB.CHEW PO SCH (21:51)
[2023-04-20] MEDS: QUEtiapine FUMARATE 100 MG TABLET PO SCH (21:52)
[2023-04-20] MEDS: BISACODYL 10 MG/SUPPOSITORY RC ONE (23:00)
[2023-04-20] MEDS: POTASSIUM CHLORIDE 20 MEQ TABLET.ER PO ONE (23:41)
[2023-04-21 00:01] VITALS: BP_SYST 121; PULSE 117; RESP 18; TEMP 97.3; O2SAT 97
[2023-04-21] MEDS ORDERED: KCL 20 mEq in 0.45% NS 1000 mL 1,000 ML IV ONE (01:06)
[2023-04-21] MEDS: KCL 20 mEq in 0.45% NS 1000 mL 1,000 ML IV SCH (01:09)
[2023-04-21 06:21] LABS: EOSINOPHILS % (AUTO) 0.1 % (0.0-4.0); HEMATOCRIT 33.8 % (36-48); HEMOGLOBIN 11.8 g/dL (12.0-16.0); LYMPHOCYTES # (AUTO) 0.5 K/uL (1.0-5.5); LYMPHOCYTES % (AUTO) 4.7 % (20.5-51.5); MEAN CORPUSCULAR HEMOGLOBIN 30 pg (27-31); MEAN CORPUSCULAR HGB CONC 35 % (32-36); MEAN CORPUSCULAR VOLUME 87 fL (79.0-98.0); MONOCYTES # (AUTO) 0.3 K/uL (0.0-1.0); MONOCYTES % (AUTO) 2.4 % (1.7-9.3); NEUTROPHILS # (AUTO) 9.9 K/uL (1.8-7.7); NEUTROPHILS % (AUTO) 92.8 % (40.0-70.0); PLATELET COUNT (AUTO) 250 K/uL (130-430); RED BLOOD CELL COUNT(AUTO) 3.89 MIL/uL (4.2-6.2); WHITE BLOOD COUNT (AUTO) 10.7 K/uL (4.8-10.8)
[2023-04-21 08:00] VITALS: BP_SYST 98; PULSE 133; RESP 18; TEMP 100.2; O2SAT 96
[2023-04-21] MEDS ORDERED: ENOXAPARIN SODIUM 40 MG/0.4 ML SYRINGE SUBCUT SCH (09:00)
[2023-04-21] MEDS: NS 500 ML IV ONE (09:02)
[2023-04-21] MEDS: HYDROXYCHLOROQUINE SULFATE 200 MG TABLET PO SCH (09:03)
[2023-04-21] MEDS: ENOXAPARIN SODIUM 30 MG/0.3 ML SYRINGE SUBCUT SCH (09:03)
[2023-04-21 11:30] LABS: CALCIUM 8.6 mg/dL (8.4-11.0); CREATININE 0.6 mg/dL (0.55-1.30); POTASSIUM 3.5 mmol/L (3.5-5.1)
[2023-04-21 11:34] LABS: ALBUMIN 3.1 g/dL (3.4-4.8); PHOSPHORUS 1.7 mg/dL (2.7-4.5); TOTAL BILIRUBIN 0.7 mg/dL (0.0-1.0)
[2023-04-21] MEDS: predniSONE 5 MG TABLET PO ONE (13:01)
[2023-04-21 16:49] VITALS: BP_SYST 112; PULSE 106; RESP 16; TEMP 98.4; O2SAT 98
[2023-04-21] MEDS: D10W 1,000 ML IV SCH (17:21)
[2023-04-21 20:00] VITALS: BP_SYST 122; PULSE 90; RESP 17; TEMP 98.8; O2SAT 98
[2023-04-21] MEDS: POTASSIUM CHLORIDE IV SCH (21:07)
[2023-04-21] MEDS: [UNRECOGNIZED DRUG - OTHER] IV SCH (21:07)
[2023-04-21] MEDS: SODIUM CHLORIDE IV SCH (21:07)
[2023-04-21] MEDS: TPN CENTRAL IV SCH (21:07)
[2023-04-22] VITALS (7 sets, daily range): BP systolic 108–138; PULSE 87–98; RESP 16–20; TEMP 97–98.6; O2SAT 96–99
[2023-04-22 06:03] LABS: ERYTHROCYTE SEDIMENTATION RATE 78 MM/HR (0-20)
[2023-04-22 06:20] LABS: BASOPHILS % (AUTO) 0.2 % (0.0-2.0); EOSINOPHILS # (AUTO) 0.1 K/uL (0.0-0.4); EOSINOPHILS % (AUTO) 0.7 % (0.0-4.0); HEMATOCRIT 31.9 % (36-48); HEMOGLOBIN 11.1 g/dL (12.0-16.0); LYMPHOCYTES # (AUTO) 0.8 K/uL (1.0-5.5); LYMPHOCYTES % (AUTO) 10.7 % (20.5-51.5); MEAN CORPUSCULAR HEMOGLOBIN 31 pg (27-31); MEAN CORPUSCULAR HGB CONC 35 % (32-36); MEAN CORPUSCULAR VOLUME 88 fL (79.0-98.0); MONOCYTES # (AUTO) 0.4 K/uL (0.0-1.0); MONOCYTES % (AUTO) 5.2 % (1.7-9.3); NEUTROPHILS # (AUTO) 6.1 K/uL (1.8-7.7); NEUTROPHILS % (AUTO) 83.2 % (40.0-70.0); PLATELET COUNT (AUTO) 286 K/uL (130-430); RED BLOOD CELL COUNT(AUTO) 3.64 MIL/uL (4.2-6.2); RED CELL DISTRIBUTION WIDTH 13.8 % (9.0-15.0); WHITE BLOOD COUNT (AUTO) 7.3 K/uL (4.8-10.8)
[2023-04-22 06:35] LABS: ALBUMIN 2.9 g/dL (3.4-4.8); CALCIUM 8.5 mg/dL (8.4-11.0); CREATININE 0.54 mg/dL (0.55-1.30); PHOSPHORUS 1.9 mg/dL (2.7-4.5); POTASSIUM 3.7 mmol/L (3.5-5.1); TOTAL BILIRUBIN 0.7 mg/dL (0.0-1.0)
[2023-04-22] MEDS: predniSONE 5 MG TABLET PO SCH (09:03)
[2023-04-22] MEDS: HYDROcodone/ACETAMIN 5-325 MG TAB (NORCO/ VICODIN) PO PRN (09:03)
[2023-04-22] MEDS: ENOXAPARIN SODIUM 30 MG/0.3 ML SYRINGE SUBCUT ONE (15:16)
[2023-04-22] MEDS: TPN CENTRAL 0.0001 ML, SODIUM CHLORIDE 40 MEQ, POTASSIUM CHLORIDE 40 MEQ, K PHOS 18 MM,... IV SCH (20:56)
[2023-04-22] MEDS: FAT EMULSIONS 250 ML IV SCH (20:56)
[2023-04-22] MEDS: ONDANSETRON HCL 4 MG/2 ML VIAL IVP PRN (20:57)
[2023-04-23 00:45] VITALS: BP_SYST 115; RESP 16; TEMP 99; O2SAT 98
[2023-04-23 06:44] LABS: POTASSIUM 3.8 mmol/L (3.5-5.1)
[2023-04-23 06:45] LABS: ALBUMIN 2.9 g/dL (3.4-4.8); CALCIUM 8.9 mg/dL (8.4-11.0); CREATININE 0.55 mg/dL (0.55-1.30); PHOSPHORUS 4.1 mg/dL (2.7-4.5); TOTAL BILIRUBIN 0.8 mg/dL (0.0-1.0); TOTAL PROTEIN, SERUM 7.5 g/dL (6.4-8.3)
[2023-04-23 08:07] VITALS: BP_SYST 110; RESP 17; TEMP 98; O2SAT 98
[2023-04-23 10:05] LABS: BASOPHILS % (AUTO) 0.4 % (0.0-2.0); EOSINOPHILS # (AUTO) 0.1 K/uL (0.0-0.4); EOSINOPHILS % (AUTO) 1.2 % (0.0-4.0); HEMATOCRIT 33.2 % (36-48); HEMOGLOBIN 11.5 g/dL (12.0-16.0); LYMPHOCYTES # (AUTO) 1.1 K/uL (1.0-5.5); LYMPHOCYTES % (AUTO) 18.4 % (20.5-51.5); MEAN CORPUSCULAR HEMOGLOBIN 30 pg (27-31); MEAN CORPUSCULAR HGB CONC 35 % (32-36); MEAN CORPUSCULAR VOLUME 87 fL (79.0-98.0); MONOCYTES # (AUTO) 0.6 K/uL (0.0-1.0); MONOCYTES % (AUTO) 9.2 % (1.7-9.3); NEUTROPHILS # (AUTO) 4.4 K/uL (1.8-7.7); NEUTROPHILS % (AUTO) 70.8 % (40.0-70.0); PLATELET COUNT (AUTO) 350 K/uL (130-430); RED BLOOD CELL COUNT(AUTO) 3.81 MIL/uL (4.2-6.2); RED CELL DISTRIBUTION WIDTH 14.3 % (9.0-15.0); WHITE BLOOD COUNT (AUTO) 6.3 K/uL (4.8-10.8)
[2023-04-23] MEDS: PIPERACILLIN/TAZOBACTAM 4.5 GM/VIAL (ZOSYN) IV ONE (15:06)
[2023-04-23 20:00] VITALS: BP_SYST 143; PULSE 84; RESP 16; TEMP 98.6; O2SAT 96
[2023-04-23] MEDS: TPN CENTRAL IV SCH (22:19)
[2023-04-23] MEDS: POTASSIUM CHLORIDE IV SCH (22:19)
[2023-04-23] MEDS: SODIUM CHLORIDE IV SCH (22:19)
[2023-04-23] MEDS: [UNRECOGNIZED DRUG - OTHER] IV SCH (22:19)
[2023-04-24] VITALS: BP_SYST 134; PULSE 84; RESP 16; TEMP 98; O2SAT 96
[2023-04-24 06:39] LABS: BASOPHILS % (AUTO) 0.4 % (0.0-2.0); EOSINOPHILS # (AUTO) 0.1 K/uL (0.0-0.4); EOSINOPHILS % (AUTO) 1.1 % (0.0-4.0); HEMATOCRIT 34.5 % (36-48); HEMOGLOBIN 12.1 g/dL (12.0-16.0); LYMPHOCYTES # (AUTO) 1.6 K/uL (1.0-5.5); LYMPHOCYTES % (AUTO) 22.9 % (20.5-51.5); MEAN CORPUSCULAR HEMOGLOBIN 30 pg (27-31); MEAN CORPUSCULAR HGB CONC 35 % (32-36); MEAN CORPUSCULAR VOLUME 86 fL (79.0-98.0); MONOCYTES # (AUTO) 0.7 K/uL (0.0-1.0); MONOCYTES % (AUTO) 10.3 % (1.7-9.3); NEUTROPHILS # (AUTO) 4.5 K/uL (1.8-7.7); NEUTROPHILS % (AUTO) 65.3 % (40.0-70.0); PLATELET COUNT (AUTO) 418 K/uL (130-430); RED CELL DISTRIBUTION WIDTH 14.1 % (9.0-15.0); WHITE BLOOD COUNT (AUTO) 6.9 K/uL (4.8-10.8)
[2023-04-24 07:31] LABS: ALBUMIN 3.1 g/dL (3.4-4.8); CALCIUM 9.3 mg/dL (8.4-11.0); CREATININE 0.54 mg/dL (0.55-1.30); PHOSPHORUS 4.4 mg/dL (2.7-4.5); POTASSIUM 3.8 mmol/L (3.5-5.1); TOTAL BILIRUBIN 0.7 mg/dL (0.0-1.0); TOTAL PROTEIN, SERUM 7.9 g/dL (6.4-8.3)
[2023-04-24 08:00] VITALS: BP_SYST 121; PULSE 89; RESP 16; TEMP 98.3; O2SAT 98
[2023-04-24 20:00] VITALS: BP_SYST 124; PULSE 77; RESP 18; TEMP 98.1; O2SAT 98
[2023-04-24] MEDS: [UNRECOGNIZED DRUG - OTHER] IV SCH (21:00)
[2023-04-24] MEDS: POTASSIUM CHLORIDE IV SCH (21:00)
[2023-04-24] MEDS: SODIUM CHLORIDE IV SCH (21:00)
[2023-04-24] MEDS: TPN CENTRAL IV SCH (21:00)
[2023-04-25] VITALS: BP_SYST 124; PULSE 80; RESP 18; TEMP 98.2; O2SAT 97
[2023-04-25 06:51] LABS: ALBUMIN 3.3 g/dL (3.4-4.8); CALCIUM 9.5 mg/dL (8.4-11.0); CREATININE 0.58 mg/dL (0.55-1.30); PHOSPHORUS 3.9 mg/dL (2.7-4.5); POTASSIUM 4.1 mmol/L (3.5-5.1); TOTAL BILIRUBIN 0.6 mg/dL (0.0-1.0); TOTAL PROTEIN, SERUM 8.2 g/dL (6.4-8.3)
[2023-04-25 08:00] VITALS: BP_SYST 114; PULSE 101; RESP 16; TEMP 98.8; O2SAT 97
[2023-04-25 10:35] VITALS: O2SAT 97
[2023-04-25] MEDS ORDERED: ONDA-8 TL (13:33)
[2023-04-25] MEDS ORDERED: HYDR-3919 PO (13:33)
[2023-04-25] MEDS ORDERED: IBUP-1969 PO (13:33)
[2023-04-25 13:56] VITALS: BP_SYST 124; PULSE 88; RESP 16; TEMP 98.3; O2SAT 99
[2023-04-25] MEDS ORDERED: TPN CENTRAL IV SCH (21:00)
[2023-04-25] MEDS ORDERED: [UNRECOGNIZED DRUG - OTHER] IV SCH (21:00)
[2023-04-25] MEDS ORDERED: POTASSIUM CHLORIDE IV SCH (21:00)
[2023-04-25] MEDS ORDERED: SODIUM CHLORIDE IV SCH (21:00)
== END 2023-04-25 14:30 | disposition home or self-care (01) | DRG 853 ==
LOC: SED 03:47 → SMU 16:49 → STU 17:24 → SMU 04-20 14:04 → STU 04-21 23:19 → SMU 04-22 10:37
PROVIDERS: ADMIT Specialist; ATTEND Specialist
PROC: 0DNU0ZZ Release Omentum, Open Approach (ICD-10-PCS; 2023-04-19)
PROC: 0D9J0ZZ Drainage of Appendix, Open Approach (ICD-10-PCS; 2023-04-19)
PROC: 0DBH0ZZ Excision of Cecum, Open Approach (ICD-10-PCS; 2023-04-19)
PROC: 0DJD4ZZ Inspection of Lower Intestinal Tract, Percutaneous Endoscopic Approach (ICD-10-PCS; principal; 2023-04-19 17:19)
PROC: 02HV33Z Insertion of Infusion Device into Superior Vena Cava, Percutaneous Approach (ICD-10-PCS; 2023-04-20)
PROC: B548ZZA Ultrasonography of Superior Vena Cava, Guidance (ICD-10-PCS; 2023-04-20)
DX: A41.9 Sepsis, unspecified organism (principal); K35.33 Acute appendicitis with perforation, localized peritonitis, and gangrene, with abscess; K56.7 Ileus, unspecified; K38.1 Appendicular concretions; K66.0 Peritoneal adhesions (postprocedural) (postinfection); E87.6 Hypokalemia; E80.6 Other disorders of bilirubin metabolism; F41.9 Anxiety disorder, unspecified; F31.9 Bipolar disorder, unspecified; K56.41 Fecal impaction; R74.01 Elevation of levels of liver transaminase levels; Z90.49 Acquired absence of other specified parts of digestive tract
CPT/HCPCS: 36415; 71045; 74018; 76376; 80048; 80053; 80076; 81000; 81001; 81015; 82948; 83605; 83690; 83735; 84100; 84478; 85025; 85610; 85651; 85730; 87040; 88300; 96361; 96374; 96375; 99285; C1727; G0378; J0330; J0610; J1170; J1630; J1650; J1885; J2270; J2405; J2543; J2704; J2710; J3475; J3480; J3490; J7120; J7131; J7512